=== PATIENT | male | born 1970 | race Caucasian/White ===

== ENCOUNTER 2019-04-17 16:25 | Inpatient (IN) | payer OTHER ==
[~2019-04-17] VITALS: Ht 185.4 cm; Wt 107.1 kg
[~2019-04-17 16:25] MED LIST: ALBU90OI INH; AZIT250 PO; FLUT.05NI; PRED10 PO; Prednisone20 MG PO
[2019-04-17 16:50] LABS: PCO2 Arterial > 105 mmHg (35-45); PO2 Arterial 146 mmHg (80-100); pH Blood Arterial 7.01 (7.35-7.45)
[2019-04-17 16:56] LABS: BASOPHILS ABSOLUTE AUTO 0.15 K/mm3 (0.00-0.23); BASOPHILS PERCENT AUTO 1 % (0-2); EOSINOPHILS ABSOLUTE AUTO 2.29 K/mm3 (0.00-0.68); EOSINOPHILS PERCENT AUTO 11 % (0-6); Hemoglobin 16.4 g/dL (13.5-17.5); IMMATURE GRAN ABSOLUTE AUTO 0.08 K/mm3 (0.00-0.10); IMMATURE GRAN PERCENT AUTO 0 % (0-1); LYMPHOCYTES ABSOLUTE AUTO 9.96 K/mm3 (0.84-5.20); LYMPHOCYTES PERCENT AUTO 47 % (21-46); MONOCYTES ABSOLUTE AUTO 1.14 K/mm3 (0.16-1.47); MONOCYTES PERCENT AUTO 5 % (4-13); Mean Corpuscular HGB 31.9 pg (26.0-34.0); Mean Corpuscular HGB Conc 32.2 g/dL (31.5-36.5); Mean Corpuscular Volume 99 fL (80-100); Mean Platelet Volume 10.2 fL (9.1-12.4); NEUTROPHILS ABSOLUTE AUTO 7.57 K/mm3 (1.96-9.15); NEUTROPHILS PERCENT AUTO 36 % (41-73); Platelet Count 326 K/mm3 (150-400); RDW Coefficient Variation 12.7 % (11.7-14.2); RDW Standard Deviation 46.3 fL (35.1-46.3); Red Blood Cell Count 5.14 M/mm3 (4.30-5.90); White Blood Cell Count 21.19 K/mm3 (4.00-11.30)
[2019-04-17 18:03] LABS: PCO2 Arterial > 105 mmHg (35-45); PO2 Arterial 456 mmHg (80-100); pH Blood Arterial 7.08 (7.35-7.45)
[2019-04-17 18:20] LABS: Source, Urine Catheter
[2019-04-17 18:22] LABS: Alanine Aminotransfer (ALT/SGP 33 U/L (12-78); Albumin, Blood 4.1 g/dL (3.4-5.0); Albumin/Globulin Ratio 1.1 (0.8-1.8); Alk Phos 59 U/L (50-136); Anion Gap 3 mmol/L (6-16); Aspartate Aminotrans (AST/SGOT 29 U/L (12-37); Bilirubin, Total 0.4 mg/dL (0.1-1.0); Blood Urea Nitrogen 19 mg/dL (8-24); Bun/Creatinine Ratio 19.7 (12.0-20.0); CO2, Blood 32 mmol/L (21-32); Calcium, Blood 8.2 mg/dL (8.5-10.1); Chloride, Blood 104 mmol/L (98-108); Creatinine, Blood 0.96 mg/dL (0.60-1.20); Globulin, Blood 3.7 g/dL (2.2-4.0); Glomerular Filtration Rate >60 (60-); Glucose, Blood 283 mg/dL (70-99); Magnesium, Blood 3.1 mg/dL (1.6-2.4); Potassium, Blood 5.1 mmol/L (3.5-5.5); Sodium, Blood 139 mmol/L (136-145); Total Protein, Blood 7.8 g/dL (6.4-8.2); Troponin I 0.048 ng/mL (0.000-0.040)
[2019-04-17 18:24] LABS: Bilirubin, Urine Neg (Neg); Blood, Urine 3+ (Neg); Glucose Qualitative, Urine 2+ (Neg); Ketones, Urine Neg (Neg); Leukocyte Esterase, Urine Neg (Neg); Nitrite, Urine Neg (Neg); Protein, Urine 4+ (Neg); Specific Gravity, Urine 1.025 (1.003-1.022); Urobilinogen, Urine NORM (Normal)
[2019-04-17 18:29] LABS: Appearance, Urine Hazy (Clear); Color, Urine Yellow (P-Yellow)
[2019-04-17 18:39] LABS: Squamous Epithelial Cells Many /hpf (Few)
[2019-04-17 18:41] LABS: Amorphous Mod ({null, 0-Heavy}); Bacteria Many /hpf; Mucus Light ({null, 0-Heavy})
--- NOTE | 2019-04-17 18:41 | NUR ---
PT ARRIVED TO ICU 7 AT 1710 VIA GURNEY. PT INTUBATED AND SEDATED, PROPOFOL INFUSING. RT AT THE BEDSIDE AND CONNECTED PT TO VENTILATOR AND PT WAS ONLY PULLING VOLUMES OF 200ML. DR. SANTIAGO AND CRISTY MARLEY TO THE BEDSIDE. DR. SANTIAGO PLACED ARTERIAL LINE IN R WRIST. BICARB PUSH GIVEN AND GTT STARTED. ABG AND BMP DRAWN FROM ART LINE AND SENT TO LAB. DR. SANTIAGO SPOKE WITH PT'S FAMILY AT THE BEDSIDE.
[2019-04-17 19:28] LABS: U Amphetamine Screen Not Detected; U Barbituate Screen Not Detected; U Benzodiazapine Screen Not Detected; U Buprenorphine Screen Not Detected; U Cannabinoids Screen Not Detected; U Cocaine Screen Not Detected; U Methadone Screen Not Detected; U Methamphetamine Screen Not Detected; U Opiates Screen Not Detected; U Oxycodone Screen Not Detected; U Phencyclidine Screen Not Detected; U Propoxyphene Screen Not Detected
[2019-04-17 19:31] LABS: Adenovirus Not Detected (NOT DETECT); Bordetella pertussis Not Detected (NOT DETECT); Chlamydophila pneumoniae Not Detected (NOT DETECT); Coronavirus 229E Not Detected (NOT DETECT); Coronavirus HKU1 Not Detected (NOT DETECT); Coronavirus NL63 Not Detected (NOT DETECT); Coronavirus OC43 Not Detected (NOT DETECT); Human Metapneumovirus Not Detected (NOT DETECT); Human Rhinovirus/Enterovirus Not Detected (NOT DETECT); Influenza A Not Detected (NOT DETECT); Influenza A/2009-H1 Not Detected (NOT DETECT); Influenza A/H1 Not Detected (NOT DETECT); Influenza A/H3 Not Detected (NOT DETECT); Influenza B Not Detected (NOT DETECT); Mycoplasma pneumoniae Not Detected (NOT DETECT); Parainfluenza Virus 1 Not Detected (NOT DETECT); Parainfluenza Virus 2 Not Detected (NOT DETECT); Parainfluenza Virus 3 Not Detected (NOT DETECT); Parainfluenza Virus 4 Not Detected (NOT DETECT); Respiratory Syncytial Virus Not Detected (NOT DETECT)
--- NOTE | 2019-04-17 20:00 | NUR ---
ASSUMED CARE OF PT, REPORT RCV'D FROM NICOLE DUMONT RN. PT SEDATED ON PROPOFOL@ 25 MCG/KG/MIN. NIMBEX @ 1.5 MCG/KG/MIN FOR PARALYTIC. SODIUM BICARB @ 200 ML/HR. VENT SETTINGS AC 12, PEEP 8, FIO2 100%. NICARDAPINE GTT NEEDED FOR HTN. ABG'S ORDERED Q2. RIGHT RADIAL ARTERIAL LINE. TEMP MUNIZ PATENT AND DRAINING. PT'S FAMILY AT BEDSIDE, UPDATED WITH PROGRESS. SEE ADMISSION ASSESSMENT.
[2019-04-17 20:10] LABS: PCO2 Arterial 88.2 mmHg (35-45); PO2 Arterial 498 mmHg (80-100); pH Blood Arterial 7.19 (7.35-7.45)
[2019-04-17 21:37] LABS: PCO2 Arterial 95.1 mmHg (35-45); PO2 Arterial 487 mmHg (80-100)
[2019-04-17 22:33] LABS: PCO2 Arterial 90.2 mmHg (35-45); PO2 Arterial 277 mmHg (80-100); pH Blood Arterial 7.17 (7.35-7.45)
[2019-04-17 23:43] LABS: PCO2 Arterial 83.4 mmHg (35-45); PO2 Arterial 181 mmHg (80-100); pH Blood Arterial 7.19 (7.35-7.45)
[2019-04-18 00:45] LABS: PO2 Arterial 156 mmHg (80-100)
[2019-04-18 00:46] LABS: PCO2 Arterial 81.5 mmHg (35-45)
[2019-04-18 01:55] LABS: PO2 Arterial 113 mmHg (80-100); pH Blood Arterial 7.24 (7.35-7.45)
[2019-04-18 01:56] LABS: PCO2 Arterial 72.9 mmHg (35-45)
[2019-04-18 02:59] LABS: PO2 Arterial 132 mmHg (80-100)
[2019-04-18 03:07] LABS: PCO2 Arterial 72 mmHg (35-45); pH Blood Arterial 7.25 (7.35-7.45)
[2019-04-18 03:47] LABS: PO2 Arterial 119 mmHg (80-100)
[2019-04-18 03:49] LABS: PCO2 Arterial 72.7 mmHg (35-45); pH Blood Arterial 7.24 (7.35-7.45)
[2019-04-18 04:07] LABS: BASOPHILS ABSOLUTE AUTO 0.01 K/mm3 (0.00-0.23); BASOPHILS PERCENT AUTO 0 % (0-2); EOSINOPHILS ABSOLUTE AUTO 0.01 K/mm3 (0.00-0.68); EOSINOPHILS PERCENT AUTO 0 % (0-6); Hematocrit 48.5 % (37.0-53.0); Hemoglobin 15.3 g/dL (13.5-17.5); IMMATURE GRAN ABSOLUTE AUTO 0.07 K/mm3 (0.00-0.10); IMMATURE GRAN PERCENT AUTO 1 % (0-1); LYMPHOCYTES ABSOLUTE AUTO 0.48 K/mm3 (0.84-5.20); LYMPHOCYTES PERCENT AUTO 3 % (21-46); MONOCYTES PERCENT AUTO 1 % (4-13); Mean Corpuscular HGB 31.8 pg (26.0-34.0); Mean Corpuscular HGB Conc 31.5 g/dL (31.5-36.5); Mean Corpuscular Volume 101 fL (80-100); NEUTROPHILS ABSOLUTE AUTO 14.75 K/mm3 (1.96-9.15); NEUTROPHILS PERCENT AUTO 95 % (41-73); Platelet Count 264 K/mm3 (150-400); RDW Coefficient Variation 12.6 % (11.7-14.2); RDW Standard Deviation 46.8 fL (35.1-46.3); Red Blood Cell Count 4.81 M/mm3 (4.30-5.90); White Blood Cell Count 15.52 K/mm3 (4.00-11.30)
[2019-04-18 04:35] LABS: Anion Gap 7 mmol/L (6-16); Blood Urea Nitrogen 18 mg/dL (8-24); Bun/Creatinine Ratio 19.7 (12.0-20.0); CO2, Blood 31 mmol/L (21-32); Calcium, Blood 8.1 mg/dL (8.5-10.1); Chloride, Blood 101 mmol/L (98-108); Creatinine, Blood 0.92 mg/dL (0.60-1.20); Glomerular Filtration Rate >60 (60-); Glucose, Blood 284 mg/dL (70-99); Potassium, Blood 4.4 mmol/L (3.5-5.5); Sodium, Blood 139 mmol/L (136-145)
[2019-04-18 05:20] LABS: PCO2 Arterial 82.6 mmHg (35-45); PO2 Arterial 97.1 mmHg (80-100); pH Blood Arterial 7.22 (7.35-7.45)
--- NOTE | 2019-04-18 06:36 | NUR ---
SHIFT SUMMARY PT STABLE ALL NIGHT WITH IMPROVING ABG'S. VENT SETTINGS PC RR 15, FIO2 50%, PEEP 8.0. NIMBEX @ 2 MCG/KG/MIN, PROPOFOL 40 MCG/KG/MIN, SODIUM BICARB 200 ML/HR. 1300 ML URINARY OUTPUT. PT REMAINS TACHYCARDIC. BP REMAINED WITHIN NORMAL RANGE, NO NEED TO START THE NICARDAPINE GTT. OGT TO LIS, MINIMAL OUTPUT. PT AFEBRILE THOUGH OCCASIONALLY DIAPHORETIC. LUNGS WITH EXPIRATORY WHEEZES HEARD, NO CHANGE FROM BEGINNING OF SHIFT. ART LINE PATENT. PLEASE SEE ALL PREVIOUS NOTES FROM THIS SHIFT AND ASSESSMENTS. WILL REPORT TO DAYSHIFT NURSE.
--- NOTE | 2019-04-18 07:50 | NUR ---
Recieved report from Craig HERRON. Patient is sedated and intubated. He has 8.0 ET and 24 cm at teeth. He is vent settings are AC 15, PC 25, FiO2 25% and PEEP 8.0 and sats 89-92%. He is afebrille at 98.6, systolics 120-130's amd ST 120's. He is being paralyzed on nimbex and reduced to 1.5 mcg/kg/min from 2.0 and reduced Propofol from 40 mcg/kg/min to 35. He is 3 on a train of four currently. He has OG to LIS with no output. He has Temp ray 16Fr. draining to gravity. he has bilaterl 18ga wrist IV's bothe dressings intact and WNL'sThe left IV infusing Bi-carb 200ml/hr and the right Propofol 35mcg/kg/min. He has FS IV in LFA 18ga and is flushed and SL'd. He has art line to right wrist. He has bilateral LE SCD's in place.
--- NOTE | 2019-04-18 09:02 | NUR ---
NOTIFIED RT OF NURSE NOTIFY FOR ADVANCING ET 2CM AND WAS 25CM AT LIPS AND NOW 27 AT LIPS.NO OTHER CURRENT CHANGES
--- NOTE | 2019-04-18 10:05 | NUR ---
Dr Abdul was in room and changed vent settings to AC 18, PC 22 FiO2 50%, Peep 8.0 sats low 90%. Dropped Bi carb to 100ml/hr and weaning off Nimbex if possible. Changed out OG as it was coiled in throat and mouth. Talking about TF's.
--- NOTE | 2019-04-18 11:30 | NUR ---
Reduced Nimbex to 1 mcg/kg/min and his resp effort increased and Nimbex back to 1.5 mcg/kg/min and increased Propofol to 40 mcg/kg/min. Increased FiO2 to 60% and no other vent senting changes. All family has gone and patient comfortable. He is slightly febrile at 99.0. Sats 88-93 %.
--- NOTE | 2019-04-18 13:30 | NUR ---
Remove restraints at 1300 as increased Nimbex back up. No current changes in Gtt or vent settings. Started TF Vital High Protien at 25ml/hr. Sats remains 90-93%.
--- NOTE | 2019-04-18 15:22 | NUR ---
No new current changes, nimbex, bicarb, Propofol, or vent. HE 120-130's, systolic 120-130's and MAP > 65.
--- NOTE | 2019-04-18 17:35 | NUR ---
No changes with patient, Nimbex at 1.5 mcg/kg/min, D5 BiCarb 100ml/hr, Propofol 40 mcg/kg/min. Patient tends to sat low on left side in the high 80's nad low 90's on right side. Patients family have many questions. TF, Vital High Protien 25ml/hr. Art line and safe set to right wrist.
--- NOTE | 2019-04-18 19:30 | NUR ---
ASSUMED CARE PT PARALYZED VIA NIMBEX FOR VENTILATOR SYNCHRONY AT 1MCG/KG/MIN WITH TRAIN OF FOUR AT 4/4, INCREASED TO 1.2. PROPOFOL AT 40MCG/KG/MIN. VENT SETTINGS OF AC18, PC 22, FIO2 60% AND PEEP OF 8. O2 SATS IN THE LOW 90'S AND WITH ANY MOVEMENT SATS DROP TO HIGH 80'S WITH EXTENDED RECOVERY TIME. BP ADEQUATE/OCCASIONALLY HYPERTENSIVE VIA RT RADIAL ART LINE, ECG SHOWS ST IN THE 120'S. BICARB GTT AT 100ML/HR. TF INITIATED TODAY AT GOAL OF 20ML/HR WITH NO RESIDUAL. PLAN ON GIVING CT TYLENOL FOR TEMP, PT IS HOT TO TOUCH AND DIAPHORETIC. MULTIPLE FAMILY MEMBERS IN ROOM, ANSWERED QUESTIONS REGARDING ASSESSMENT CONCERNS AND PLAN FOR SHIFT.
[2019-04-19 03:17] LABS: BASOPHILS ABSOLUTE AUTO 0.02 K/mm3 (0.00-0.23); BASOPHILS PERCENT AUTO 0 % (0-2); EOSINOPHILS PERCENT AUTO 0 % (0-6); Hematocrit 44.7 % (37.0-53.0); Hemoglobin 13.6 g/dL (13.5-17.5); IMMATURE GRAN ABSOLUTE AUTO 0.11 K/mm3 (0.00-0.10); IMMATURE GRAN PERCENT AUTO 1 % (0-1); LYMPHOCYTES ABSOLUTE AUTO 0.85 K/mm3 (0.84-5.20); LYMPHOCYTES PERCENT AUTO 5 % (21-46); MONOCYTES ABSOLUTE AUTO 0.56 K/mm3 (0.16-1.47); MONOCYTES PERCENT AUTO 3 % (4-13); Mean Corpuscular HGB 31.8 pg (26.0-34.0); Mean Corpuscular HGB Conc 30.4 g/dL (31.5-36.5); Mean Platelet Volume 9.8 fL (9.1-12.4); NEUTROPHILS ABSOLUTE AUTO 16.41 K/mm3 (1.96-9.15); NEUTROPHILS PERCENT AUTO 92 % (41-73); Platelet Count 225 K/mm3 (150-400); RDW Coefficient Variation 12.8 % (11.7-14.2); RDW Standard Deviation 49.1 fL (35.1-46.3); Red Blood Cell Count 4.28 M/mm3 (4.30-5.90); White Blood Cell Count 17.95 K/mm3 (4.00-11.30)
[2019-04-19 03:18] LABS: Mean Corpuscular Volume 104 fL (80-100)
[2019-04-19 03:39] LABS: Anion Gap 0 mmol/L (6-16); Blood Urea Nitrogen 13 mg/dL (8-24); CO2, Blood 41 mmol/L (21-32); Calcium, Blood 8.1 mg/dL (8.5-10.1); Chloride, Blood 97 mmol/L (98-108); Creatinine, Blood 0.72 mg/dL (0.60-1.20); Glomerular Filtration Rate >60 (60-); Glucose, Blood 182 mg/dL (70-99); Magnesium, Blood 2.3 mg/dL (1.6-2.4); Potassium, Blood 4.5 mmol/L (3.5-5.5); Sodium, Blood 138 mmol/L (136-145)
[2019-04-19 03:55] LABS: Troponin I 0.626 ng/mL (0.000-0.040)
[2019-04-19 04:48] LABS: PCO2 Arterial 97.5 mmHg (35-45); pH Blood Arterial 7.25 (7.35-7.45)
[2019-04-19 04:49] LABS: PO2 Arterial 73.9 mmHg (80-100)
--- NOTE | 2019-04-19 05:11 | NUR ---
CALL TO DR NGUYEN UPDATED ON CRITICAL ABG (pH, CO2) NO NEW ORDERS.
--- NOTE | 2019-04-19 06:18 | NUR ---
SHIFT SUMMARY SEE PREVIOUS NOTES FOR SHIFT. PT REMAINS INTUBATED, NO CHANGE TO PREVIOUSLY NOTED VENT SETTINGS. SEDATION VIA PROPOFOL AT 40MCG/KG/MIN AND NIMBEX AT 1.5MCG/KG/MIN W/ CURRENT TOF OF 2/4, BICARB GTT AT 100ML/HR. TF AT GOAL OF 20ML/HR-NO RESIDUALS FOR SHIFT. PT MEDICATED X 4 W/ FANTANYL, HR DECREASED TO 110'S AND BP IMPROVED POST ADMINISTRATION. BP HYPERTENSIVE VIA RT RADIAL ART LINE AT TIMES BUT RESOLVES WITH FENTANYL, ECG SHOWS ST, O2 SATS 90-94% DEPENDENT ON REPOSITIONING.
--- NOTE | 2019-04-19 07:40 | NUR ---
Recieved report from Roseanna HERRON. Patient remains intubated, sedated and paralyzed. #3 for train of four. He has 8.0 ET and is 27cm at teeth. His vent settings are AC18 PC 22 FiO2 60% and PEEP 8.0 and sats low 90%'s. He continues to be diaphoretic and temp 98.9. He has bilateral 18ga IV in wrist/hands and left is infusing propofol 40 mcg/kg/min and D5 sodium BiCarbat 100ml/hr and the right has nimbex 1.5 mcg/kg/min. He has arterial line in right wrist for monitorinbg BP and has safe set attached for blood draws. He has temp ray in place draining to gravity tea/propofol colored urine. He has SCd's bilateral to LE's.
--- NOTE | 2019-04-19 07:55 | NUR ---
was called into room by Alina EPSTEIN and she stated his sats were dropping and volumes decreased to 180's. paged Dr Abdul and Alina discussed her findings.
--- NOTE | 2019-04-19 09:30 | NUR ---
ART LINE REMOVED AND USE LARGE CUFF ON LEFT UPPER ARM. NO CHANGES TO NIMBEX AND PROPOFOL AND D5 SODIUM BICARB[address] NGUYEN IN ROOM AND MAKING ADJUSTMENTS TO VENT AND NOW IS AC 22, PC 22, FIO2 60% AND PEEP 8.0 AND SATS 88-92%. FAMILY AT BEDSIDE. PATIENT SLIGHTLY FEBRILE AT 99.0, HR 120, SYSTOLIC 140-150'S.
--- NOTE | 2019-04-19 11:40 | NUR ---
No significant changes with patient, placed fan to help cool patient. No current changes to gtt or vent setting, volumes 350-400's. Family remains at bedside for support.
--- NOTE | 2019-04-19 13:01 | NUR ---
ASSUMED CARE OF PT FROM GOPAL DUMONT. PROPOFOL, NIMBEX AND BICARB GTTS INFUSING. MULTIPLE FAMILY MEMBERS AT THE BEDSIDE. PT SPO2 94% WITH AC 22, PS 22, PEEP 8 AND FIO2 50%.
--- NOTE | 2019-04-19 17:22 | NUR ---
SHIFT SUMMARY: PT HAS DONE WELL THIS SHIFT WITH INCREASING VOLUMES ON THE VENT AND MAINTAININ SPO2 AROUND 95% THIS AFTERNOOON ON 50% FIO2. PT IS STILL ON THE NIMBEX BUT IT IS BEING TITRATED DOWN CURRENTLY SO WRIST RESTRAINTS REAPPLIED TO PREVENT ACCIDENTAL EXTUBATION. PT'S LUNGS ARE TIGHT WITH WHEEZES ON THE R SIDE. HE HAS HAD SMALL AMT OF THICK WHITE SPUTUM. ST IN THE 110-1TEENS, SBP IN THE 130-150S. HE HAS GENERALIZED EDEMA. TOLERATING TUBE FEED. CL URINE OUT FROM MUNIZ. PT HAS HAD MULTIPLE FAMILY MEMBERS AT THE BEDSIDE TODAY. NIMBEX IS BEING TITRATED OFF LOTS OF EDUCATION PROVIDED ON WHAT TO EXPECT. FAMILY HAS BEEN VERY ANXIOUS BUT DOES WELL WITH LOTS OF EXPLANATION OF PLAN OF CARE. CONTINUING TO MONITOR.
--- NOTE | 2019-04-19 19:30 | NUR ---
ASSUMED CARE PT REMAINS INTUBATED, OFF NIMBEX, REMAINS ON PROPOFOL AT 60MCG/KG/MIN. PT RESPONDS TO PAIN BUT DOES NOT FOLLOW COMMANDS WITH PROPOFOL AT THIS RATE. VENT SETTINGS AT AC22/PC18/NLD805%/PEEP 8. GOAL IS TO MAINTAIN VOLUMES 400-500'S. BICARB GTT REMAINS AT 100ML/HR AND TF REMAINS AT GOAL OF 20 WITH NO RESIDUALS. RT RADIAL ART LINE DC'D TODAY-SITE IS SOFT, NONTENDER WITHOUT ANY EVIDENCE OF HEMATOMA WITH GOOD SPO2 WAVEFORM. VSS, ECG SHOWS ST IN THE 120'S O2 SATS ARE IN THE LOW 90'S.
[2019-04-20 03:59] LABS: BASOPHILS ABSOLUTE AUTO 0.01 K/mm3 (0.00-0.23); BASOPHILS PERCENT AUTO 0 % (0-2); EOSINOPHILS PERCENT AUTO 0 % (0-6); Hematocrit 41.8 % (37.0-53.0); Hemoglobin 12.9 g/dL (13.5-17.5); IMMATURE GRAN ABSOLUTE AUTO 0.07 K/mm3 (0.00-0.10); IMMATURE GRAN PERCENT AUTO 0 % (0-1); LYMPHOCYTES PERCENT AUTO 5 % (21-46); MONOCYTES ABSOLUTE AUTO 0.51 K/mm3 (0.16-1.47); MONOCYTES PERCENT AUTO 3 % (4-13); Mean Corpuscular HGB 31.9 pg (26.0-34.0); Mean Corpuscular HGB Conc 30.9 g/dL (31.5-36.5); Mean Corpuscular Volume 104 fL (80-100); Mean Platelet Volume 9.9 fL (9.1-12.4); NEUTROPHILS ABSOLUTE AUTO 14.48 K/mm3 (1.96-9.15); NEUTROPHILS PERCENT AUTO 91 % (41-73); Platelet Count 200 K/mm3 (150-400); RDW Coefficient Variation 12.5 % (11.7-14.2); RDW Standard Deviation 47.3 fL (35.1-46.3); Red Blood Cell Count 4.04 M/mm3 (4.30-5.90); White Blood Cell Count 15.87 K/mm3 (4.00-11.30)
[2019-04-20 04:16] LABS: Anion Gap 2 mmol/L (6-16); Blood Urea Nitrogen 18 mg/dL (8-24); Bun/Creatinine Ratio 26.1 (12.0-20.0); CO2, Blood 42 mmol/L (21-32); Calcium, Blood 8.7 mg/dL (8.5-10.1); Chloride, Blood 97 mmol/L (98-108); Creatinine, Blood 0.69 mg/dL (0.60-1.20); Glomerular Filtration Rate >60 (60-); Glucose, Blood 172 mg/dL (70-99); Magnesium, Blood 2.3 mg/dL (1.6-2.4); Phosphorus, Blood 1.5 mg/dL (2.5-4.9); Potassium, Blood 3.8 mmol/L (3.5-5.5); Sodium, Blood 141 mmol/L (136-145)
[2019-04-20 05:00] LABS: PCO2 Arterial 69.9 mmHg (35-45); PO2 Arterial 69.4 mmHg (80-100); pH Blood Arterial 7.42 (7.35-7.45)
--- NOTE | 2019-04-20 06:36 | NUR ---
SHIFT SUMMARY PT REMAINS INTUBATED ON AC22 W/ PC 18, PEEP OF 8 AND FIO2 50%. WITH ANY DOWNWARD TITRATION OF SEDATION, VT'S DROP TO 200'S, O2 SATS IN THE LOW 90'S AND HR >125 AND PROPOFOL HAS REMAINED BETWEEN 50-60,CG/KG/MIN ALONG WITH SEDATION ADJUNCTS OF FENTANYL AND ATIVAN WHEN MORE AGITATED. BICARB AT 100ML/HR. TF REMAINS AT GOAL OF 20ML/HR WITH NO RESIDUALS. AM LABS SHOWS LOW PHOS AND KPHOS RIDER INFUSING NOW PER ELECTROLYTE PROTOCOL.
--- NOTE | 2019-04-20 07:15 | NUR ---
ASSUMED CARE OF PATIENT; SEE ASSESSMENT CHARTING FOR DETAILS. PATIENT REMAINS SEDATED AND INTUBATED; PROPOFOL DRIP AT 60MCG/KG/MIN. RIKERS' SCALE 3. VENT. SETTINGS: A/C 22, PC 18, PEEP 8 AND FIO2 50%. BIOX LOW TO MID 90'S. NAHCO3 DRIP INFUSING AT 100ML/HR. TUBE FEEDING, OF VITAL HIGH PROTEIN, AT GOAL RATE OF 20 ML/HR WITH 30ML H20 EVERY 4 HOURS. MUNIZ DRAINING MOD. AMOUNTS OF GREEN/YELLOW URINE (PROPOFOL). BILAT. SOFT WRIST RESTRAINTS IN PLACE; NO S/SX'S OF SKIN BREAKDOWN; ROM DONE Q [address] WITHOUT NOTED ECTOPY; BP LABILE BUT ADEQUATE.
--- NOTE | 2019-04-20 09:30 | NUR ---
DR. WHITE HERE; CHANGED FIO2 TO 45% AND A/C RATE FROM 22 TO 20. RN INFORMED R.T. RE: CHANGES.
--- NOTE | 2019-04-20 09:57 | NUR ---
PROPOFOL DRIP DOWN TO 50MCG/KG/MIN; WILL INITITATE PRECEDEX DRIP AT 0.4 MCG/KG/HR. FAMILY AT BEDSIDE; LOTS OF QUESTIONS AND CONCERNS. RN EXPLAINING MED. ADJUSTMENTS, ETC. DR. WHITE INFORMED THEM THAT PATIENT IMPROVED AND EXPLAINED POC.
--- NOTE | 2019-04-20 10:15 | NUR ---
ETT APPEARS TO BE SLIPPING DOWN (PATIENTS' SKIN DIAPHORETIC); CUFF LEAK NOTED; RN CONTACTED STEFAN RAHMAN, RN RE:ABOVE.
--- NOTE | 2019-04-20 11:00 | NUR ---
R.T.'S RETAPED ETT; NO FURTHER PROBLEMS WITH AIR LEAK ETC.
--- NOTE | 2019-04-20 13:06 | NUR ---
PROPOFOL DRIP DOWN TO 30MCG/KG/MIN. FROM 40MCG/KG/MIN.
--- NOTE | 2019-04-20 16:22 | NUR ---
Met with Rubin's mom at bedside. She admits concern and responded well to theraputic listening, affirmation of excellent care, and gentle mortgage counselor. Non-faith, but she was appreciaitve of emotional support. I will remain available.
--- NOTE | 2019-04-20 18:30 | NUR ---
SUMMARY: VENT. SETTINGS PREVIOUSLY NOTED. PROPOFOL DRIP AT 50MCG/KG/MIN AND PRECEDEX DRIP AT 0.7MCG/KG/HR. PATIENT STILL MOVING HEAD BACK AND FORTH AND PULLING ON RESTRAINTS, AT TIMES; HIGH PRESSURES VENT. ETC. FENTANYL 50MCG GIVEN IVT WHICH BRINGS DOWN RR RATE TO TEENS TO LOW 20'S; SBP DOWN TO 120'S AND HR TO 100/MIN. INFORMED FAMILY THAT SBT TO BE DONE IN AM AND POSSIBLY MAY BE EXTUBATED TOMORROW IF HE BECOMES MORE ALERT/COOPERATIVE WHEN SEDATION REDUCED; INFORMED FIO2 AT 45% AND PEEP 8 WHICH WILL NEED TO BE REDUCED BEFORE EXTUBATION, ALSO. FAMILY REMAINS SUPPORTIVE AND ATTENTIVE TO PATIENT AND ALL HIS 'MACHINES'; FREQUENT QUESTIONS/CONCERNS. DIURESED 2700ML OF URINE OVER PAST 12 HOURS. WILL REPORT TO ONCOMING RN.
--- NOTE | 2019-04-20 19:30 | NUR ---
ASSUMED CARE PT REMAINS INTUBATED, CURRENT SETTINGS OF AC 20 W/ PC 18, FIO2 45% AND PEEP 8. PT MORE AGITATED THIS SHIFT AND SEDATION IS VIA BOTH PROPOFOL AT 50MCG/KG/MIN AND PRECEDEX AT 0.7MCG/KG/HR. PT OPENS EYES SPONTANEOUSLY BUT DOES NOT FOLLOW COMMANDS, ONLY MOVES HEAD BACH AND FORTH. WITH AGITATION, VT'S DROP TO 200'S AND RR 28-34 BUT WHEN SEDATED VT'S IN THE 500-600'S. TF ADVANCED TO NEW GOAL OF 35ML/HR-10ML RESIDUAL. BICARB DC'D AND NS TKO. PT REAMAINS WARM TO TOUCH AND SKIN IS RED WITH ANY AGITATION. WILL DISCUSS SBT IN AM WITH RT. VSS, ECG SHOWS ST 100-120'S AND O2 SATS LOW 90'S.
--- NOTE | 2019-04-20 22:46 | NUR ---
CALL FROM DR CHRISTOPHER REEVES REQUESTED SBT IN AM WITH GOAL OF TITRATING PROPOFOL DOWN TO 40 AND FIO2 TO 40%. RT UPDATED ON PLAN.
--- NOTE | 2019-04-21 03:18 | NUR ---
SBT SBT UNDERWAY. PROPOFOL AT 30MCG/KG/MIN AND PRECEDEX AT 0.7. PT OPENS EYES SPONTANEOUSLY BUT DOES NOT FOLLOW COMMANDS. VT'S 300-500, RR 30-35 AND O2 SATS 92%.
[2019-04-21 03:43] LABS: BASOPHILS PERCENT AUTO 0 % (0-2); EOSINOPHILS PERCENT AUTO 0 % (0-6); Hematocrit 41.7 % (37.0-53.0); Hemoglobin 13.2 g/dL (13.5-17.5); IMMATURE GRAN ABSOLUTE AUTO 0.03 K/mm3 (0.00-0.10); IMMATURE GRAN PERCENT AUTO 0 % (0-1); LYMPHOCYTES ABSOLUTE AUTO 0.94 K/mm3 (0.84-5.20); LYMPHOCYTES PERCENT AUTO 9 % (21-46); MONOCYTES ABSOLUTE AUTO 0.41 K/mm3 (0.16-1.47); MONOCYTES PERCENT AUTO 4 % (4-13); Mean Corpuscular HGB 31.6 pg (26.0-34.0); Mean Corpuscular HGB Conc 31.7 g/dL (31.5-36.5); NEUTROPHILS ABSOLUTE AUTO 9.35 K/mm3 (1.96-9.15); NEUTROPHILS PERCENT AUTO 87 % (41-73); Platelet Count 192 K/mm3 (150-400); RDW Coefficient Variation 12.5 % (11.7-14.2); RDW Standard Deviation 45.9 fL (35.1-46.3); Red Blood Cell Count 4.18 M/mm3 (4.30-5.90); White Blood Cell Count 10.73 K/mm3 (4.00-11.30)
[2019-04-21 03:44] LABS: Mean Corpuscular Volume 100 fL (80-100)
[2019-04-21 03:56] LABS: PCO2 Arterial 54.6 mmHg (35-45); PO2 Arterial 60 mmHg (80-100); pH Blood Arterial 7.48 (7.35-7.45)
[2019-04-21 03:57] LABS: Anion Gap 4 mmol/L (6-16); Blood Urea Nitrogen 27 mg/dL (8-24); Bun/Creatinine Ratio 35.8 (12.0-20.0); CO2, Blood 40 mmol/L (21-32); Calcium, Blood 8.9 mg/dL (8.5-10.1); Chloride, Blood 100 mmol/L (98-108); Creatinine, Blood 0.76 mg/dL (0.60-1.20); Glomerular Filtration Rate >60 (60-); Glucose, Blood 178 mg/dL (70-99); Magnesium, Blood 2.5 mg/dL (1.6-2.4); Phosphorus, Blood 3.5 mg/dL (2.5-4.9); Potassium, Blood 3.8 mmol/L (3.5-5.5); Sodium, Blood 144 mmol/L (136-145)
--- NOTE | 2019-04-21 04:42 | NUR ---
SBT, WEAN WAS DONE ON PS 7 A PEEP OF 8 FOR THE FIRST 15 MINS THEN CHANGED PEEP TO 5. PT BROUGHT IN GOOD VT'S 400-750 T/O. MIN VOL WERE HIGH 14-16, PT TRASHED ABOUT/DID NOT FOLLOW COMMANDS. RR WERE IN THE 30'S T/O WEAN.
--- NOTE | 2019-04-21 06:01 | NUR ---
SHIFT SUMMARY SEE PREVIOUS NOTES FOR SHIFT. PT REMAINS ON PC18, FIO2 40% AND PEEP 8. SEDATION VIA PROPOFOL AT 40MCG/KG/MIN AND PRECEDEX AT 0.5MCG/KG/HR. PT HAS BEEN MEDICATED WITH FENTANYL IN AN EFFORT TO TITRATE SEDATION DOWNWARD. TF REMAINS AT GOAL OF 35ML/HR WITH RESIDUALS <10ML. VSS, ECG SHOWS SR/ST, O2 SATS LOW 90'S. UOP 1600ML AND IS GREEN IN COLOR.
--- NOTE | 2019-04-21 07:16 | NUR ---
BEGINNING OF SHIFT Assumed care at 0700 with Natali HERRON. Bedside report received from Latonia HERRON.
--- NOTE | 2019-04-21 08:05 | NUR ---
FAMILY AT BEDSIDE Pt's mother at bedside. Updated on pt's care. Oral care performed. Pt agitated, opening eyes spontaneously and moving head away from suction. Agitation resolved after oral care completed.
--- NOTE | 2019-04-21 10:50 | NUR ---
UPDATE Pt's mother inquired about reason pt was still on propofol and verbalized frustration. This RN educated pt's mother that pt was highly agitated during oral care and sedation is necessary to decrease agitation and increase comfort. Pt's mother verbalized understanding but also continued to verbalize frustration. Sedation gradually decreased until propofol was off and precedex was 0.3 mcg/kg/hr. Pt opened eyes spontaneously and able nod head and visual basic developer with hands. Dr Gomez in room to assess pt. Pt changed from pressure control to spontaneous mode on ventilator. PEEP 5.0, FiO2 40%. Decision made by Dr Gomez to not extubate today due to tachynpea and inconsistent tidal volumes. Additionally, pt was not able to follow commands such as wiggling toes, lifting legs, or holding up two fingers. Propofol restarted at 30 mcg/kg/min. Tidal volumes between 350 and 450.
--- NOTE | 2019-04-21 12:37 | NUR ---
UPDATE Pt remains on spontaneous ventilation mode. Propofol 40 mcg/kg/min. Precedex 0.5 mcg/kg/hr. Fentanyl given for tachypnea and agitation. Pt often bites on tube and thrashes head left and right. Family educated about decreasing stimulation as they are often at pt's bedside repositioning legs, moving blankets, placing fan on pt, etc. Family verbalizes understanding. Pt's mother educated each time sedation is increased due to agitation. She verbalizes understanding.
--- NOTE | 2019-04-21 15:20 | NUR ---
INCREASED WHEEZING AND TIGHTNESS TO BASES AFTER PT AWROUSED AND BECAME VERY AGITATED; THRASHING HEAD FROM SIDE TO SIDE, SITTING UP IN BED, GAGGING ON ETT. PT MEDICATED WITH FENT 50MCG. RT AT BEDSIDE AND INCREASED FIO2 UP TO 50% SATS RANGING FROM 87-88% ON 45%. MODERATE AMT OF THICK YELLOW SPUTUM SX'S FROM ETT.
--- NOTE | 2019-04-21 17:37 | NUR ---
SUMMARY Pt tolerated spontaneous mode t/o day, with TV 350-450. FiO2 required increasing to 50%. RR between 22-28 while comfortably sedated. RR increases to 32-36 with agitation. Agitation resolves with fentanyl and decrease of stimuli. Pt remains on propofol 40 mcg/kg/min and precedex 0.5 mcg/kg/hr. Pt placed back on PC 18, PEEP 5, FiO2 50% per orders from Dr Gomez; for rest. OG tube remains with 35 mL/hr feeds of Vital High Protein and 30 mL water flush Q4H. Residuals less than 10 mL. 1675 mL of green urine output from ray catheter.
--- NOTE | 2019-04-21 18:35 | NUR ---
UPDATE Temp 99.7 per temp ray. Pt diaphoretic. SCDs removed. Fan placed on patient. No shivering noted.
--- NOTE | 2019-04-21 19:24 | NUR ---
ASSUMED CARE PT REMAINS INTUBATED, CURRENT VENT SETTINGS AT PC 18, FIO2 50% AND PEEP OF 5. SEDATION VIA PROPOFOL AT 40MCG/KG/MIN AND PRECEDEX AT 0.5MCG/KG/HR. FAMILY IN ROOM, DISCUSSED PLAN FOR SEDATION, BATH AND SBT IN AM. TF AT GOAL OF 35ML/HR WITH RESIDUAL <10ML. VSS, ECG SHOWS SR IN THE 80'S AND O2 SATS 94%. FC IN PLACE DRAINING GREEN URINE. SCD'S CURRENTLY OFF D/T INCREASING TEMP WHICH HAS HAPPENED IN THE EVENING FOR THE LAST 4 SHIFTS BUT REMAINS <100.4.
--- NOTE | 2019-04-21 23:55 | NUR ---
UPDATE RT IN ROOM, ADJUSTED PC TO 12, NO CHANGE TO FIO2 BUT CHANGED I:E RATIO. VT'S 500-600 AND O2 SATS 92-94%. WILL UPDATE DR WHITE WHEN ABLE.
--- NOTE | 2019-04-22 03:36 | NUR ---
SEDATION VACATION PER RT, PLAN TO CHANGE PT OVER TO PS TODAY. SEDATION OFF FOR SEDATION VACATION. AFTER FIVE TO TEN MINUTES, PT OPENS EYES, FOLLOWS COMMANDS AND CAN NOD/SHAKE HEAD TO YES/NO QUESTIONS. PRECEDEX REMAINS ON AT 0.5MCG/KG/HR, DISCUSSED RESTARTING SEDATION WITH FAMILY FRIEND THELMA IF PT SHOWED ANY SIGNS OF FATIGUE OR ANXIETY.
[2019-04-22 03:38] LABS: Hematocrit 41.3 % (37.0-53.0); Hemoglobin 12.8 g/dL (13.5-17.5); Mean Corpuscular HGB 31.2 pg (26.0-34.0); Mean Corpuscular Volume 101 fL (80-100); Mean Platelet Volume 9.8 fL (9.1-12.4); Platelet Count 188 K/mm3 (150-400); RDW Coefficient Variation 12.6 % (11.7-14.2); RDW Standard Deviation 47.1 fL (35.1-46.3); White Blood Cell Count 8.22 K/mm3 (4.00-11.30)
[2019-04-22 03:41] LABS: Base Excess Venous 10.6 mmol/L; Bicarbonate Venous 32.7 mmol/L (24.0-30.0); PO2 Venous 70.2 mmHg (38-42); pH Blood Venous 7.46 (7.34-7.37)
[2019-04-22 03:54] LABS: Anion Gap 6 mmol/L (6-16); Blood Urea Nitrogen 29 mg/dL (8-24); Bun/Creatinine Ratio 30.9 (12.0-20.0); CO2, Blood 34 mmol/L (21-32); Calcium, Blood 8.5 mg/dL (8.5-10.1); Chloride, Blood 104 mmol/L (98-108); Creatinine, Blood 0.94 mg/dL (0.60-1.20); Glomerular Filtration Rate >60 (60-); Glucose, Blood 180 mg/dL (70-99); Potassium, Blood 3.9 mmol/L (3.5-5.5); Sodium, Blood 144 mmol/L (136-145)
[2019-04-22 04:01] LABS: BASOPHILS PERCENT MAN 0 % (0-2); EOSINOPHILS PERCENT MAN 0 % (0-6); LYMPHOCYTES ABSOLUTE MAN 0.82 K/mm3 (0.84-5.20); LYMPHOCYTES PERCENT MAN 10 % (21-46); METAMYELOCYTE ABSOLUTE MAN 0.08 K/mm3 (0.00-0.00); METAMYELOCYTE PERCENT MAN 1 % (0-0); MONOCYTES ABSOLUTE MAN 0.41 K/mm3 (0.16-1.47); MONOCYTES PERCENT MAN 5 % (4-13); SEG NEUTROPHILS PERCENT MAN 84 % (41-73); TOTAL CELLS COUNTED 100
--- NOTE | 2019-04-22 04:07 | NUR ---
SEDATION RESUMED PT RR INCREASED AND REPORTED VIA NODDING INCREASED WORK OF BREATHING. SEDATION RESUMED-SEE ICU FLOW SHEET FOR DETAILS.
--- NOTE | 2019-04-22 06:41 | NUR ---
SHIFT SUMMARY SEE PREVIOUS NOTES FOR SHIFT. PT REMAINS INTBUATED, CURRENT SETTINGS AT PC 12, PEEP OF 5 FIO2 50%. SEDATION RESUMED AFTER SEDATION VACATION D/T REPORTED INCREASED WORK OF BREATHING VIA PROPOFOL AT 40MCG/KG/MIN AND PRECEDEX AT 0.5MCG/KG/HR. UPDATED PT'S MOTHER SHASHA ABOUT SEDATION VACATION RESULTS AND THAT DR JACOB IS THE HYDROELECTRIC PLANT STRUCTURAL ENGINEER ON TODAY. TF REMAINS AT GOAL WITH RESIDUAL <10ML, MUNIZ IN PLACE WITH 1900 GREEN URINE OUTPUT. VSS, ECG SHOWS SR, O2 SATS AT 94%. PT'S FRIEND THELMA SPENT THE NIGHT IN ROOM.
--- NOTE | 2019-04-22 08:36 | NUR ---
PT SEDATED ON PROPOFOL AT 40MCG AND PRECEDEX AT 0.5MCG FOR MECH VENT. PRECEDEX DECREASED TO 0.2MCG IN PREPARATION OF WEAN AND POSSIBLE EXTUBATION. LUNGS DIMINISHED TO BASES, EXP WHEEZE TO LEFT UPPER LOBE. PT MOVES AND GRIMACES WITH NOXIOUS STIMULI. FAMILY AT BEDSIDE.
--- NOTE | 2019-04-22 09:48 | NUR ---
PROPOFOL PLACED ON STANDBY. DR JACOB IN UNIT AND GIVEN UPDATE.
--- NOTE | 2019-04-22 10:18 | NUR ---
PT PLACED ON SPONT 04/15 WITH FIO2 AT 40% FOR WEANING TRIAL. PT VERY AWAKE AND FOLLOWING DIRECTIONS; PT INTERACTING W FAMILY, NODDING APPROPRIATELY. PROP AND PRECEDEX OFF. TF OFF.
--- NOTE | 2019-04-22 11:18 | NUR ---
PT EXTUBATED AT 1100, PT TOLERATED EXTUBATION WELL. PLACED ON 4L N/C, TITRATED UP TO 5L. PROPOFOL AND PRECEDEX REMAIN OFF. NS AT TKO TO POWERGLIDE. OG TUBE DC'D WITH ETT. PT RECEIVING UDN NOW; FAMILY AT BEDSIDE
[2019-04-22 11:41] LABS: Base Excess Venous 8.5 mmol/L; Bicarbonate Venous 30.8 mmol/L (24.0-30.0); PCO2 Venous 44.7 mmHg (38-42); PO2 Venous 45.2 mmHg (38-42); pH Blood Venous 7.47 (7.34-7.37)
--- NOTE | 2019-04-22 11:50 | NUR ---
PT PLACED ON HIGH ELIEZER AT 9L, SATS 92%.
--- NOTE | 2019-04-22 13:24 | NUR ---
SATS REMAIN 92% ON 9L HIGHFLO, PT RESP EVEN AND UNLABORED. LASIX 20MG IVP GIVEN PER DR JACOB. PT TOLERATING ICE CHIPS
--- NOTE | 2019-04-22 16:37 | NUR ---
PT DANGLED AT BEDSIDE, ABLE TO HOLD SELF UP/BALANCE ON BED W MINIMAL SUPPORT. NOT YET STRONG ENOUGH TO STAND. SATS REMAINED 92%, BREATHING EFFORT INCREASED SLIGHTLY, HEART RATE UP TO 115 DURING DANGLE. PT PASSED LARGE BM USING BED RAMIREZ. PT TOLERATING WATER, FRIENDS AND FAMILY AT BEDSIDE
--- NOTE | 2019-04-22 18:34 | NUR ---
PT TOLERATING JELLO, VERY POOR HAND CORDINATION D/T PROFOUND WEAKNESS. IS ABLE TO HELP TURN HIMSELF FOR BEDPAN PLACEMENT. RESP REMAIN EVEN UNLABORED, SATS 92-94% ON 9L VIA HIGHFLO. OVERALL PT HAD PROGRESSED WELL TODAY.
--- NOTE | 2019-04-22 22:00 | NUR ---
ASSUMED PT CARE AT 1900 PT SITTING UP IN BED WITH HI FLOW NC AT 9L WITH OXYGEN SATURATIONS 94%. PT IS ALERT AND ORIENTED AND ABLE TO MAKE HIS NEEDS KNOWN. STATES HE FEELS "GROGGY" AND VERY WEAK. FAMILY AT BEDSIDE. PT C/O BEING EXHAUSTED AND TIRED. SLIGHTLY ELEVATED TEMP OF 99.3 UPON ASSESSMENT. TMAX OF 99.[address] JACOB AWARE. PT TOLERATING CLEAR LIQUIDS. STILL VERY WEAK TO BILATERAL ARMS/HANDS, BUT ABLE TO CAFETERIA OPERATOR HIS CUP FOR DRINKS. PT STATES HE IS VERY HUNGRY, BUT UNDERSTANDS WHY HE IS ON A CLEAR LIQUID DIET. LUNG SOUNDS ARE CLEAR TO BILATERAL UPPER LOBES AND DIMINISHED TO BILATERAL LOWER LOBES. NO WHEEZING NOTED. PT DENIES ANY PAIN. JUST EXHAUSTED. CALL LIGHT LEFT WITHIN REACH; PT ABLE TO MAKE HIS NEEDS KNOWN. REFUSED REPOSITIONING; STATED HE WAS COMFORTABLE AND WOULD CALL FOR REPOSITIONING. FAMILY REMAINS AT BEDSIDE FOR THE NIGHT AND IS APPROPRIATE AND COOPERATIVE WITH CARES.
--- NOTE | 2019-04-22 22:33 | NUR ---
CALLED DR. MEEKS IN REGARDS TO PT C/O NOT BEING ABLE TO SLEEP. NEW ORDERS FOR MELATONIN 6MG PO NOW.
[2019-04-23 04:06] LABS: BASOPHILS ABSOLUTE AUTO 0.01 K/mm3 (0.00-0.23); BASOPHILS PERCENT AUTO 0 % (0-2); EOSINOPHILS PERCENT AUTO 0 % (0-6); Hematocrit 42.3 % (37.0-53.0); Hemoglobin 13.5 g/dL (13.5-17.5); IMMATURE GRAN ABSOLUTE AUTO 0.07 K/mm3 (0.00-0.10); IMMATURE GRAN PERCENT AUTO 1 % (0-1); LYMPHOCYTES ABSOLUTE AUTO 1.15 K/mm3 (0.84-5.20); LYMPHOCYTES PERCENT AUTO 10 % (21-46); MONOCYTES ABSOLUTE AUTO 0.62 K/mm3 (0.16-1.47); MONOCYTES PERCENT AUTO 5 % (4-13); Mean Corpuscular HGB 31.8 pg (26.0-34.0); Mean Corpuscular HGB Conc 31.9 g/dL (31.5-36.5); Mean Corpuscular Volume 100 fL (80-100); Mean Platelet Volume 9.9 fL (9.1-12.4); NEUTROPHILS ABSOLUTE AUTO 9.88 K/mm3 (1.96-9.15); NEUTROPHILS PERCENT AUTO 84 % (41-73); Platelet Count 213 K/mm3 (150-400); RDW Coefficient Variation 12.7 % (11.7-14.2); RDW Standard Deviation 46.6 fL (35.1-46.3); Red Blood Cell Count 4.25 M/mm3 (4.30-5.90); White Blood Cell Count 11.73 K/mm3 (4.00-11.30)
[2019-04-23 04:21] LABS: Anion Gap 6 mmol/L (6-16); Blood Urea Nitrogen 26 mg/dL (8-24); Bun/Creatinine Ratio 28.7 (12.0-20.0); CO2, Blood 30 mmol/L (21-32); Calcium, Blood 8.4 mg/dL (8.5-10.1); Chloride, Blood 105 mmol/L (98-108); Creatinine, Blood 0.91 mg/dL (0.60-1.20); Glomerular Filtration Rate >60 (60-); Glucose, Blood 113 mg/dL (70-99); Potassium, Blood 4.2 mmol/L (3.5-5.5); Sodium, Blood 141 mmol/L (136-145)
--- NOTE | 2019-04-23 07:16 | NUR ---
END OF SHIFT SUMMARY PT HAS BEEN PLEASANT AND COOPERATIVE THROUGHOUT SHIFT. VERY SHY WITH MAKING NEEDS KNOWN. DOESN'T USE CALL LIGHT EVEN THOUGH IT IS WITHIN REACH. SISTER COMMUNICATES PT'S NEEDS AND REQUESTS FOR HIM. PT REMAINS ALERT AND ORIENTED; STILL STATES HIS HEAD FEELS "CLOUDY". PT NOTED TO HAVE BEAD OF SWEAT ACROSS FOREHEAD, TREMULOUS, AND C/O HALLUCINATIONS. TMAX OF 99.9, BUT DROPPED BACK DOWN TO 99.1. HR MAINLY 90-100'S WHILE AWAKE; 80-90'S DURING SLEEP. HR WAS NOTED TO BE HIGH 125 THIS SHIFT. PT STATED AT HOME HE DRINKS ABOUT A 6 PACK PER DAY; PASSED OFF TO DAY RN TO CONTINUE TO MONITOR. PT HAS ATTEMPTED TO SLEEP WITH NO SUCCESS; VERY EXHAUSTED, BUT UNABLE TO REST/SLEEP. MULTIPLE FAMILY MEMBERS IN AND OUT OF ROOM T/O NIGHT. LUNG SOUNDS REMAIN DIMINISHED WITH SLIGHT EXPIRATORY WHEEZES NOTED T/O. PRODUCTIVE, OCCASIONAL COUGH; THICK, CLEAR/YELLOWISH SPUTUM. PT CONTINUED TO TOLERATE CLEAR LIQUID DIET. STATES HE IS VERY HUNGRY AND HIS STOMACH IS UPSET WITH POSSIBLE HEARTBURN D/T HOW HUNGRY HE IS. EDUCATED PT ON WHY WE ARE STARTING WITH CLEAR LIQUID DIET BEFORE PROGRESSING DIET FURTHER; PT UNDERSTOOD. PT DECLINED REPOSITIONING MOST OF NIGHT. PULLED UP IN BED FREQUENTLY WITH SHIFTING OF HIPS. CALL LIGHT LEFT WITHIN REACH; ENCOURAGED TO UTILIZE.
--- NOTE | 2019-04-23 07:30 | NUR ---
Recieved report from Roberto HERRON. Patient awake in bed and states that he has some odd visuals., when asked if hallucinations he quickly stated 'No". He is on 7L O2 via HF NC and reduced to 5L and remains at 95%. He is MAEW but remains weak. He has NS TKO infuing into [employer]. He has SCD's bilaterally. He denies any SOB. He is slightly febrile at 99.0 and has cool wash cloth on head.
--- NOTE | 2019-04-23 08:35 | NUR ---
Recieved report from Roberto HERRON. As we were giving report the patient started to amp up as i explained why he is here and stating that [facility] as he stopped eating and his electrolytes were getting worse. He kept getting out of bed wanting to leave and had to assist him several times getting back to bed.After about the tenth conversation he wanted to leave and let him walk out. Nursing auto mechanic supervisor present and security was called. He exited and starting walking to U area yelling obsentities and security caught up with him nd he was place back in bed and bilateral soft wrist restraints were applied. We removed field start and charge nurse started RFA 20 IV. He continues to yell out at female staff. Started NS at 200ml/hr and Precedex at 0.7 mcg/kg/hr. He was up to bathroom to urinate before all this happened. He is currently quite and continues to refuse food and meds, will check on order fro possible NG. VSS
--- NOTE | 2019-04-23 09:30 | NUR ---
Patient tolerated scrambled eggs and bower and ate about 70% of it. He continues awake and talking with family. Reduced his O2 down to 3L HF NC and sats 94%. NS continues at TKO. He tolerated PO am meds. Family at bedside.
--- NOTE | 2019-04-23 12:49 | NUR ---
Patient only tolerated about 20% of regular diet for lunch and has been resting since most family went home. His O2 increased to 4L O2 via HF NC and sats 91-94%. HR remains in the 80's and systolic 110-120's with MAP > 65. Will be getting up in chair.
--- NOTE | 2019-04-23 13:46 | NUR ---
Patient up to chair. He went very slow and needed minimal assist to stand with walker. He transfered with standby assist and grabbed chair rail and lowered self into chair. His sats 88-91% and recovers to 91 % quickly. He states feels good sitting up. VSS.
--- NOTE | 2019-04-23 15:30 | NUR ---
Patient remains up in chair and is working with PT. Continues to deny any SOB. VSS. NS TKO. He is still on 4L HF NC and sats low 90%'s.
--- NOTE | 2019-04-23 18:06 | NUR ---
Patient was up to cammode before getting back to bed. He ambulated about 30 feet and had minimal drop in sats, and recovered to the low 90%'s shortly after getting back to bed. Pulled ray and had 1900 urine. Family brought dinner in and he has started to eat, CBG 138 no coverage . VSS. He continues on 4L O2 HF NC and sats low 90%'s . He remains on NS at [facility] in [facility].
--- NOTE | 2019-04-23 20:00 | NUR ---
ASSUMED CARE OF PT AT 1915. REPORT RECEIVED AT BEDSIDE. PT PRESENTS IN BED. ALERT AND ORIENTED. PLEASANT AND COOPERATIVE WITH CARE AND ASSESSMENT. PT DENIES PAIN AT THIS TIME. FAMILY AT BEDSIDE. PT ENCOURAGE TO MOVE ABOUT IN BED OR IF HE NEEDED ASSIST WITH TURNS THAT HE SHOULD CONTACT THIS RN FOR ASSISTANCE. PT VERBALIZED UNDERSTANDING. WILL REVIEW CHART AND PLAN OF CARE FOR THIS PT.
--- NOTE | 2019-04-24 00:30 | NUR ---
PT HAS BEEN ABLE TO SLEEP THIS EVENING. DID DISCONNECT PT FROM TKO IV SECONDARY TO NO LONGER RECEIVEING IV ANTIBIOTICS. PT HAS HAD TEACHING ON HIS MEDICATIONS, AND IMPORTANCE OF MOBILITY. WILL CONTINUE TO MONITOR PT.
[2019-04-24 04:32] LABS: BASOPHILS ABSOLUTE AUTO 0.01 K/mm3 (0.00-0.23); BASOPHILS PERCENT AUTO 0 % (0-2); EOSINOPHILS PERCENT AUTO 0 % (0-6); Hematocrit 43.3 % (37.0-53.0); Hemoglobin 14.1 g/dL (13.5-17.5); IMMATURE GRAN ABSOLUTE AUTO 0.07 K/mm3 (0.00-0.10); IMMATURE GRAN PERCENT AUTO 1 % (0-1); LYMPHOCYTES ABSOLUTE AUTO 1.19 K/mm3 (0.84-5.20); LYMPHOCYTES PERCENT AUTO 12 % (21-46); MONOCYTES ABSOLUTE AUTO 0.34 K/mm3 (0.16-1.47); MONOCYTES PERCENT AUTO 3 % (4-13); Mean Corpuscular HGB Conc 32.6 g/dL (31.5-36.5); Mean Corpuscular Volume 98 fL (80-100); NEUTROPHILS ABSOLUTE AUTO 8.59 K/mm3 (1.96-9.15); NEUTROPHILS PERCENT AUTO 84 % (41-73); Platelet Count 214 K/mm3 (150-400); RDW Coefficient Variation 12.4 % (11.7-14.2); Red Blood Cell Count 4.41 M/mm3 (4.30-5.90)
--- NOTE | 2019-04-24 10:05 | NUR ---
THIS AM PT WAS SETTING UP EATING AND A/O W/O PAIN OR ANY NOTED RESP DISTRESS. PT ON 4LHFNC AND RESTING WELL. FAMILY IN TO VISIT AND PT ENJOYING THE INTERACTIONS. RR IS EVEN UN UNLABORED WITH DIM. BASES.
--- NOTE | 2019-04-24 14:15 | NUR ---
DISCUSSED AND EDUCATED PT RE WORK ENVIORNMENT RISK FACTORS THAT HE MAY EVALUTATE AND CONSIDER TO MINIMIZE RESPIRATORY RISKS IN FUTURE.
--- NOTE | 2019-04-24 15:18 | NUR ---
PT TO BE TRANSFERED TO PCU-5 VIA W/C ON O2. PT CONT TO BE ALERT COMMUNICATING NEEDS. PT IS HAS NO IVF. PT HAS BEEN IN NSR- 90 RANGE AND O2 AT 4L HFNC. PT HAS BEEN EATING WELL AND DENIES GI DISTRESS. JULIA HERRON GIVEN REPORT AND WILL RECIEVE PT.
--- NOTE | 2019-04-24 16:30 | NUR ---
Recieved report from Sumanth HERRON. Patient was brought over in [facility] PT came in shortly after and ambulated in [address]. He remains on 4L O2 HF NC. He is alert and oriented and is able to communicate his needs.
--- NOTE | 2019-04-24 18:49 | NUR ---
Family will stay with patient tonite and his room needs to be kept dark during night time and he needs as little interruption during night. Patient currently up in recliner talking with mother. He remains on 4L O2 via HF NC and sats mid90%'s and denies and SOB or any distress.VSS
--- NOTE | 2019-04-25 07:30 | NUR ---
SHIFT SUMMARY PT HAS REMAINED AOX4 THROUGHOUT SHIFT. VSS. PLEASANT AND COOPERATIVE WITH CARE. PT CONTINUES TO AMBULATE WITH STANDBY ASSIST AND FWW TO RESTROOM. LUNG SOUNDS HAVE REMAINED CLEAR IN ALL UPPER LOBES, WITH DIMINISHED BASES. O2 SATS HAVE REMAINED >90% THROUGHOUT THE NIGHT ON 2-4L VIA NASAL CANNULA, PT TITRATED TO 2L VIA NASAL CANNULA THIS AM AND HAS TOLERATED WELL. PT REPORTS THAT HE SLEPT WELL AND FEELS THAT HIS STRENGTH HAS IMPROVED FROM YESTERDAY. ONE EPISODE OF TACHYCARDIA IN THE 150-160'S LAST NIGHT WHEN UP TO THE RESTROOM, PT WAS ASYMPTOMATIC AND DENIED DYSPNEA. FAMILY HAS REMAINED AT BEDSIDE THROUGHOUT THE NIGHT. NO OTHER CHANGES NOTED FROM INITIAL ASSESSMENT. WILL CONTINUE TO MONITOR AND REPORT TO ONCOMING SHIFT RN. BED IN LOW POSITION, CALL LIGHT IN REACH.
--- NOTE | 2019-04-25 07:40 | NUR ---
PCU DAYSHIFT ASSUMED CARE OF PT APPROX. 0700. PT A&OX4. ASSESSMENT COMPLETED. VITAL SIGNS STABLE. PT HAS FAMILY AT BEDSIDE THIS MORNING. PT CURRENLTY ON 4L OXYGEN VIA N.C. WITH SATS IN HIGH 90'S WILL BEGIN TO TITRATE THIS PT TOLERATES. PT ABLE TO TAKE A SHOWER THIS MORNING AND TOLERATED WELL. BED IN LOW POSTION, CALL LIGHT IN REACH AND PT DENIES ANY NEEDS AT THIS TIME.
[2019-04-25] MEDS ORDERED: ALBU2.5V5 INH (15:37)
[2019-04-25] MEDS ORDERED: ALBU90OI61 INH (15:38)
[2019-04-25] MEDS ORDERED: FLUT1DIS5 INH (15:38)
[2019-04-25] MEDS ORDERED: NASACORT10.8 ML (15:41)
--- NOTE | 2019-04-25 18:07 | NUR ---
SHIFT SUMMARY PT PLEASANT, COOPERATIVE AND USES CALL LIGHT APPROPRIATELY. PT REMAINS A&OX4. PT VITAL SIGNS REMAIN STABLE. PT HAS BEEN ON ROOM AIR FOR SEVERAL HOURS NOW WITH SATS IN 90'S. PT ABLE TO WORK WITH PT AND OT TODAY. PT AMBUATLED AROUND UNIT AND TOELRATED WELL. PT ABLE TO SHOWER AND AMBULATE IN ROOM INTERMITENTLY AND TOELRATING WELL WELL. PT FAMILY REMAINS AT BEDSIDE. PT REPORTS FEELING BETTER THAN HE HAS BEEN. BED IN LOW POSITION, CALL LIGHT IN REACH AND PT DENIES ANY NEEDS AT THIS TIME. WILL CONTINUE TO MONITOR UNTIL HANDOFF TO NIGHTSHIFT RN.
--- NOTE | 2019-04-26 05:36 | NUR ---
SHIFT SUMMARY PT HAS REMAINED AOX4 THROUGHOUT SHIFT. VSS. PLEASANT AND COOPERATIVE WITH CARE. PT CONTINUES TO AMBULATE INDEPENDENTLY WITH FWW IN ROOM. O2 SATS HAVE REMAINED >90% ON RA. PT REPORTS INCREASING STRENGTH. PT HAS RESTED THROGHOUT MUCH OF THE NIGHT WITH FAMILY AT BEDSIDE. NO OTHER CHANGES NOTED FROM INITIAL ASSESSMENT. WILL CONTINUE TO MONITOR AND REPORT TO ONCOMING SHIFT RN. BED IN LOW POSITION, CALL LIGHT IN REACH.
[2019-04-26] MEDS ORDERED: ALBU3IS INH (10:27)
[2019-04-26] MEDS ORDERED: PANT20 PO (10:28)
[2019-04-26] MEDS ORDERED: PRED10 PO (10:51)
[2019-04-26] MEDS ORDERED: DEEP SEA44 ML (10:54)
[2019-04-26] MEDS ORDERED: Bactrim Ds Tab1 EACH PO (10:57)
--- NOTE | 2019-04-26 10:57 | NUR ---
pcu dayshift ASSUMED CARE OF PT APPROX. 0700. PT A&OX4. ASSESSMENT COMPLETED. VITAL SIGNS STABLE. PT CURRENTLY ON ROOM AIR WITH SATS IN 90'S AND TOELRATING WELL. PT ABLE TO AMBULATE AROUND ROOM WITHOUT DESATURATION. PT DENIES ANY PAIN OR SHORTNESS OF BREATH THIS MORNING. PHYSICIAN IN TO SEE PATIENT THIS MORNING. PHYSICIAN PLACED DISCHARGE ORDERS FOR PT TO GO HOME. NO S/SX OF ACUTE DISSTRESS. DISCHARGE PROCESS BEING COMPLETED. NEW MEDICATIONS CALLED INTO PHARMACY. WILL CONTINUE TO MONITOR UNTIL PT ESCORTED TO AUTOMOBILE BY PEER STAFF MEMBER.
== END 2019-04-26 11:27 | disposition home or self-care (01) | DRG 208 ==
LOC: ER 16:25 → ICUW 16:51 → ICUE 16:51 → PCU 04-24 15:44
PROVIDERS: Emergency Medicine; Internal Medicine Critical Care Medicine; Internal Medicine Pulmonary Disease; Nurse Practitioner Acute Care; ADMIT Internal Medicine
PROC: 5A1945Z Respiratory Ventilation, 24-96 Consecutive Hours (ICD-10-PCS; principal; 2019-04-17)
PROC: 0BH17EZ Insertion of Endotracheal Airway into Trachea, Via Natural or Artificial Opening (ICD-10-PCS; 2019-04-17)
PROC: 02HV33Z Insertion of Infusion Device into Superior Vena Cava, Percutaneous Approach (ICD-10-PCS; 2019-04-17)
DX: J45.901 Unspecified asthma with (acute) exacerbation (principal); J96.01 Acute respiratory failure with hypoxia; J96.02 Acute respiratory failure with hypercapnia; J45.902 Unspecified asthma with status asthmaticus; R91.8 Other nonspecific abnormal finding of lung field; E66.9 Obesity, unspecified; Z68.33 Body mass index [BMI] 33.0-33.9, adult
CPT/HCPCS: 31500; 31720; 36600; 36620; 51702; 71045; 71046; 80048; 80053; 81001; 82330; 82803; 82947; 83735; 83880; 84100; 84484; 85007; 85025; 85027; 87070; 87077; 87086; 87186; 87205; 87486; 87581; 87633; 87798; 93005; 93010; 94002; 94003; 94640; 94760; 94761; 96365-59; 96375-59; 97116; 97162; 97165; 97530; 97535; 99291-25; A9270; C1751; C9113; J0330; J0360; J0456; J0696; J1650; J1940; J2060; J2704; J2930; J3010; J3475; J7030; J7040; J7050; J7060; J7070; J7512

== ENCOUNTER 2019-06-29 05:56 | Day surgery (SDC) | payer OTHER ==
[~2019-06-29] VITALS: Ht 180.3 cm; Wt 119.6 kg
[~2019-06-29 05:56] MED LIST changes: +ALBU2.5V5 INH; +ALBU3IS INH; +ALBU90OI61 INH; +Bactrim Ds Tab1 EACH PO; +DEEP SEA44 ML; +FLUT1DIS5 INH; +NASACORT10.8 ML; +PANT20 PO
[2019-06-29] MEDS ORDERED: PRED20 PO (06:26)
[2019-06-29] MEDS ORDERED: CLAR500 PO (06:27)
--- NOTE | 2019-06-29 06:45 | NUR ---
History, Chart, Medications and Allergies reviewed before start of procedure. LS WITH EXP WHEEZES T/O. PT REPORTS TAKING 2 SIPS OF BLACK COFFEE THIS MORNING ABOUT 0500 AM. Pre-Op teaching done. Pt verbalizes understanding.
--- NOTE | 2019-06-29 13:23 | NUR ---
PT SCRIPTS CALLED TO [facility], PT DID NOT SAY THAT HE ALREADY HAD PICKED UP SAME SCRIPTS ON Thursday06-23-19. PT STATED HE DID NOT RECEIVE SCRIPT FOR PAIN MED THAT WAS ORDERED ON DISCHARGE INSTRUCTIONS. VSS REMAINED STABLE T/O STEP RECOVERY. PT STATED HIS EYES AND NOSE BURNED LIKE HE HAD BEEN IN A POOL TOO LONG, NO BLEEDING OR DRAINAGE NOTED. PT STATED HE DID NOT HAVE AN IRRIGATION KIT OR DRIP PAD AT HOME OR AFRIN SPRAY. I PROVIDED GAUZE 4X4'S (2 PACKS) FOR RIDE HOME UNTIL HE COULD RN HEMATOLOGY SUPPLIES FROM DR LEACH'S OFFICE. CALLED DR LEACH OFFICE TO NOTIFY HIM SHASHA (MOTHER) WOULD BE COMING BY OFFICE TO RN HEMATOLOGY PAIN MED SCRIPT, AND SUPPLIES ON DISCHARGE ORDERS. OFFICE WAS CLOSED TILL 1330 SO NOTIFIED SHASHA. ANGELIA CALLED BACK TO NOTIFY ME THAT SCRIPTS HAD BEEN FILLED ON 06-23-19. I CALLED SHASHA TO UPDATE HER ABOUT THE SCRIPTS AND SHE SOUNDED FEARFUL. SHE STATED THAT Daniel HAD STARTED BLEEDING OUT NASAL CAVITY SOON THEY GOT HOME, THEY HAD USED ONE PACK OF GAUZE AND HE WAS HOLDING PRESSURE AND WHERE UNABLE TO CONTACT DR THRASHER. I CALLED DR LEACH'S CELL PHONE AND SPOKE TO HIM ABOUT SHASHA'S CONCERNS. DR LEACH SAID HE WAOULD TAKE CARE AND CALL SHASHA BACK IMMEDIATELY. Discharge instructions reviewed with patient. Patient verbalizes understanding. Copy given to patient to take home. Patient States Post-Procedure ride home has been arranged. Discharged via wheelchair to private car for ride home. ALL BELONINGS RETUNED TO PATIENT.
== END 2019-06-29 22:53 | disposition home or self-care (01) ==
LOC: ORSCMMR 05:56 → ORSCSDS 07:30 → ORSCMMR 22:53
PROVIDERS: Otolaryngology
PROC: 099 Ear, Nose, Sinus, Drainage (ICD-10-PCS; principal; 2019-06-29 07:30)
PROC: 099 Ear, Nose, Sinus, Drainage (ICD-10-PCS; principal; 2019-06-29 07:30)
PROC: 099W0ZZ Drainage of Right Sphenoid Sinus, Open Approach (ICD-10-PCS; principal; 2019-06-29 07:30)
PROC: 099 Ear, Nose, Sinus, Drainage (ICD-10-PCS; principal; 2019-06-29 07:30)
PROC: 8E09XBZ Computer Assisted Procedure of Head and Neck Region (ICD-10-PCS; principal; 2019-06-29 07:30)
PROC: 099Q0ZZ Drainage of Right Maxillary Sinus, Open Approach (ICD-10-PCS; principal; 2019-06-29 07:30)
PROC: 099R0ZZ Drainage of Left Maxillary Sinus, Open Approach (ICD-10-PCS; principal; 2019-06-29 07:30)
PROC: 099 Ear, Nose, Sinus, Drainage (ICD-10-PCS; principal; 2019-06-29 07:30)
PROC: 099X0ZZ Drainage of Left Sphenoid Sinus, Open Approach (ICD-10-PCS; principal; 2019-06-29 07:30)
DX: J32.4 Chronic pansinusitis (principal); J32.0 Chronic maxillary sinusitis; J45.909 Unspecified asthma, uncomplicated; E66.01 Morbid (severe) obesity due to excess calories; Z68.36 Body mass index [BMI] 36.0-36.9, adult; Z79.899 Other long term (current) drug therapy
CPT/HCPCS: 88305; 88311; C2625; J1100; J2250; J2405; J2704; J3010; J7120

== ENCOUNTER 2019-10-21 20:06 | Emergency (ER) | payer OTHER ==
[~2019-10-21] VITALS: Ht 172.7 cm; Wt 115.7 kg
[~2019-10-21 20:06] MED LIST changes: +CLAR500 PO; +PRED20 PO
[2019-10-21 20:29] LABS: Base Excess Venous -0.2 mmol/L; Bicarbonate Venous 23.4 mmol/L (24.0-30.0); PCO2 Venous 49.7 mmHg (38-42); PO2 Venous 60.9 mmHg (38-42); pH Blood Venous 7.32 (7.34-7.37)
[2019-10-21 20:34] LABS: BASOPHILS ABSOLUTE AUTO 0.07 K/mm3 (0.00-0.23); BASOPHILS PERCENT AUTO 1 % (0-2); EOSINOPHILS ABSOLUTE AUTO 2.89 K/mm3 (0.00-0.68); EOSINOPHILS PERCENT AUTO 23 % (0-6); Hematocrit 45.9 % (37.0-53.0); IMMATURE GRAN ABSOLUTE AUTO 0.02 K/mm3 (0.00-0.10); IMMATURE GRAN PERCENT AUTO 0 % (0-1); LYMPHOCYTES ABSOLUTE AUTO 4.06 K/mm3 (0.84-5.20); LYMPHOCYTES PERCENT AUTO 32 % (21-46); MONOCYTES ABSOLUTE AUTO 0.72 K/mm3 (0.16-1.47); MONOCYTES PERCENT AUTO 6 % (4-13); Mean Corpuscular HGB Conc 32.7 g/dL (31.5-36.5); Mean Corpuscular Volume 95 fL (80-100); Mean Platelet Volume 9.5 fL (9.1-12.4); NEUTROPHILS ABSOLUTE AUTO 4.77 K/mm3 (1.96-9.15); NEUTROPHILS PERCENT AUTO 38 % (41-73); Platelet Count 266 K/mm3 (150-400); RDW Coefficient Variation 12.5 % (11.7-14.2); RDW Standard Deviation 43.3 fL (35.1-46.3); Red Blood Cell Count 4.84 M/mm3 (4.30-5.90); White Blood Cell Count 12.53 K/mm3 (4.00-11.30)
[2019-10-21 20:53] LABS: Alanine Aminotransfer (ALT/SGP 38 U/L (12-78); Albumin/Globulin Ratio 1.1 (0.8-1.8); Alk Phos 60 U/L (50-136); Anion Gap 8 mmol/L (6-16); Aspartate Aminotrans (AST/SGOT 22 U/L (12-37); Bilirubin, Total 0.3 mg/dL (0.1-1.0); Blood Urea Nitrogen 11 mg/dL (8-24); Bun/Creatinine Ratio 13.3 (12.0-20.0); CO2, Blood 25 mmol/L (21-32); Chloride, Blood 111 mmol/L (98-108); Creatinine, Blood 0.83 mg/dL (0.60-1.20); Globulin, Blood 3.6 g/dL (2.2-4.0); Glomerular Filtration Rate >60 (60-); Glucose, Blood 109 mg/dL (70-99); Potassium, Blood 3.7 mmol/L (3.5-5.5); Sodium, Blood 144 mmol/L (136-145); Total Protein, Blood 7.6 g/dL (6.4-8.2)
[2019-10-21] MEDS ORDERED: Prednisone20 MG PO (22:10)
== END 2019-10-21 22:35 | disposition home or self-care (01) ==
LOC: ER 20:06
PROVIDERS: Physician Assistant
DX: J45.901 Unspecified asthma with (acute) exacerbation (principal); Z87.01 Personal history of pneumonia (recurrent); Z79.52 Long term (current) use of systemic steroids; Z87.891 Personal history of nicotine dependence
CPT/HCPCS: 36415; 71046; 80053; 82803; 85025; 94640; 96361; 96365; 96375; 99284-25; J2930; J3475; J7030

== ENCOUNTER 2019-10-28 15:57 | Inpatient (IN) | payer OTHER ==
[2019-10-28 16:24] LABS: BASOPHILS ABSOLUTE AUTO 0.06 K/mm3 (0.00-0.23); BASOPHILS PERCENT AUTO 1 % (0-2); EOSINOPHILS ABSOLUTE AUTO 2.32 K/mm3 (0.00-0.68); EOSINOPHILS PERCENT AUTO 21 % (0-6); Hematocrit 48.1 % (37.0-53.0); Hemoglobin 15.3 g/dL (13.5-17.5); IMMATURE GRAN ABSOLUTE AUTO 0.04 K/mm3 (0.00-0.10); IMMATURE GRAN PERCENT AUTO 0 % (0-1); LYMPHOCYTES ABSOLUTE AUTO 3.45 K/mm3 (0.84-5.20); LYMPHOCYTES PERCENT AUTO 31 % (21-46); MONOCYTES ABSOLUTE AUTO 0.64 K/mm3 (0.16-1.47); MONOCYTES PERCENT AUTO 6 % (4-13); Mean Corpuscular HGB 30.1 pg (26.0-34.0); Mean Corpuscular HGB Conc 31.8 g/dL (31.5-36.5); Mean Corpuscular Volume 95 fL (80-100); Mean Platelet Volume 9.5 fL (9.1-12.4); NEUTROPHILS PERCENT AUTO 41 % (41-73); Platelet Count 262 K/mm3 (150-400); RDW Coefficient Variation 12.7 % (11.7-14.2); Red Blood Cell Count 5.09 M/mm3 (4.30-5.90); White Blood Cell Count 11.11 K/mm3 (4.00-11.30)
[2019-10-28 16:55] LABS: Alanine Aminotransfer (ALT/SGP 33 U/L (12-78); Albumin, Blood 3.8 g/dL (3.4-5.0); Albumin/Globulin Ratio 1.1 (0.8-1.8); Alk Phos 60 U/L (50-136); Anion Gap 5 mmol/L (6-16); Aspartate Aminotrans (AST/SGOT 17 U/L (12-37); Bilirubin, Total 0.4 mg/dL (0.1-1.0); Blood Urea Nitrogen 12 mg/dL (8-24); Bun/Creatinine Ratio 13.9 (12.0-20.0); CO2, Blood 27 mmol/L (21-32); Calcium, Blood 8.5 mg/dL (8.5-10.1); Chloride, Blood 107 mmol/L (98-108); Creatinine, Blood 0.87 mg/dL (0.60-1.20); Globulin, Blood 3.6 g/dL (2.2-4.0); Glomerular Filtration Rate >60 (60-); Glucose, Blood 114 mg/dL (70-99); Sodium, Blood 139 mmol/L (136-145); Total Protein, Blood 7.4 g/dL (6.4-8.2); Troponin I <0.015 ng/mL (0.000-0.040)
[2019-10-28] MEDS ORDERED: AZIT250 PO (18:10)
[2019-10-28] MEDS ORDERED: ALBU2.5V5 INH (18:11)
--- NOTE | 2019-10-28 23:54 | NUR ---
BEGINNING SHIFT SUMMARY ASSUMED CARE OF PT AT 2132. PT IS A/O X4, DENIES N/T AT THIS TIME. PT STATES THAT HE IS HAVING SOME SOB BUT IT IS BETTER THAN BEFORE, INSPIRATORY AND EXPIRATORY WHEEZES HEARD ON AUSCALTATION. HEART SOUNDS REGULAR. PT STATES THAT HE WAS INTUBATED BACK IN APRIL DUE TO SYMPTOMS SIMILAR TO WHAT HE WAS HAVING TODAY AND DECIDED TO COME IN TO MAKE SURE HIS SYMPTOMS DIDNT ESCALATE. PT STATES THAT HE HAS BEEN HAVING ASTHMA SYMPTOMS ABOUT 7 YEARS AGO BUT HE HAS NOT HAD A DEFINITE DIAGNOSIS OF ASTHMA. PT STATES THAT HE HAD AN ALLERGY TEST DONE ON HIS BACK AND HE HAD AN ALLERGIC REACTION TO SOMETHING BUT THE DOCTORS DIDNT KNOW AND THE ALLERGY IS WHAT IS CAUSING HIS SYMPTOMS. PT IS CURRENTLY SLEEPING WITH SON IN ROOM. CALL LIGHT IN REACH, BED IN LOWEST POSTION, WILL CONTINUE TO MONITOR.
[2019-10-29 00:08] LABS: Adenovirus Not Detected (NOT DETECT); Bordetella pertussis Not Detected (NOT DETECT); Chlamydophila pneumoniae Not Detected (NOT DETECT); Coronavirus 229E Not Detected (NOT DETECT); Coronavirus HKU1 Not Detected (NOT DETECT); Coronavirus NL63 Not Detected (NOT DETECT); Coronavirus OC43 Not Detected (NOT DETECT); Human Metapneumovirus Not Detected (NOT DETECT); Human Rhinovirus/Enterovirus Not Detected (NOT DETECT); Influenza A Not Detected (NOT DETECT); Influenza A/2009-H1 Not Detected (NOT DETECT); Influenza A/H1 Not Detected (NOT DETECT); Influenza A/H3 Not Detected (NOT DETECT); Influenza B Not Detected (NOT DETECT); Mycoplasma pneumoniae Not Detected (NOT DETECT); Parainfluenza Virus 1 Not Detected (NOT DETECT); Parainfluenza Virus 2 Not Detected (NOT DETECT); Parainfluenza Virus 3 Not Detected (NOT DETECT); Parainfluenza Virus 4 Not Detected (NOT DETECT); Respiratory Syncytial Virus Not Detected (NOT DETECT)
--- NOTE | 2019-10-29 04:15 | NUR ---
END SHIFT SUMMARY NO ACUTE CHANGES NOTED T/O THE NIGHT. PT SLEPT T/O THE NIGHT WITH SON AT BED SIDE. CALL LIGHT IN REACH, BED IN LOWEST POSTION, WILL CONTINUE TO MONITOR UNTIL DAYSHIFT NURSE ARRIVES.
[2019-10-29 04:42] LABS: BASOPHILS ABSOLUTE AUTO 0.01 K/mm3 (0.00-0.23); BASOPHILS PERCENT AUTO 0 % (0-2); EOSINOPHILS PERCENT AUTO 0 % (0-6); Hematocrit 46.2 % (37.0-53.0); IMMATURE GRAN ABSOLUTE AUTO 0.03 K/mm3 (0.00-0.10); IMMATURE GRAN PERCENT AUTO 0 % (0-1); LYMPHOCYTES ABSOLUTE AUTO 1.02 K/mm3 (0.84-5.20); LYMPHOCYTES PERCENT AUTO 11 % (21-46); MONOCYTES ABSOLUTE AUTO 0.11 K/mm3 (0.16-1.47); MONOCYTES PERCENT AUTO 1 % (4-13); Mean Corpuscular HGB 30.9 pg (26.0-34.0); Mean Corpuscular HGB Conc 32.5 g/dL (31.5-36.5); Mean Corpuscular Volume 95 fL (80-100); Mean Platelet Volume 9.4 fL (9.1-12.4); NEUTROPHILS ABSOLUTE AUTO 7.88 K/mm3 (1.96-9.15); NEUTROPHILS PERCENT AUTO 87 % (41-73); Platelet Count 277 K/mm3 (150-400); RDW Coefficient Variation 12.6 % (11.7-14.2); RDW Standard Deviation 44.1 fL (35.1-46.3); Red Blood Cell Count 4.85 M/mm3 (4.30-5.90); White Blood Cell Count 9.05 K/mm3 (4.00-11.30)
--- NOTE | 2019-10-29 17:55 | NUR ---
SHIFT SUMMARY- PT A/O, PLESANT AND COOPERATIVE. PT HAS BILATERAL ISP AND EXP WHEEZE. DR. WHITE CONSULTED. PT WORKING WITH RT.
--- NOTE | 2019-10-29 23:06 | NUR ---
BEGINNING SHIFT SUMMARY ASSUMED CARE OF PT AT 1900. PT IS A/O X3, PT DENIES N/T. HEART SOUNDS REGULAR, EXPIRATORY WHEEZES HEARD ON AUSCALTATION. DENIES SOB/DYSPNEA AT THIS TIME. PT STATES THAT HE IS FEELING A LOT BETTER. PT STATES THAT HIS ONLY COMPLAINT IS HIS COUGH AND HOW IT MAKES HIM HOT AND SOB. CALL LIGHT IN REACH, BED IN LOWEST POSTION, WILL CONTINUE TO MONITOR.
--- NOTE | 2019-10-30 04:06 | NUR ---
END SHIFT SUMMARY NO ACUTE CHANGES NOTED T/O THE NIGHT. PT STATED THAT HE WAS NOT ABLE TO SLEEP VERY WELL. PT AWOKE WITH SWEATS, PT IS AFEBRILE. PT STILL HAS NOT PRODUCED ANOTHER SPUTUM SAMPLE FOR RETESTING. CALL LIGHT IN REACH, BED IN LOWEST POSTION, WILL CONTINUE TO MONITOR UNTIL DAYSHIFT NURSE ARRIVES.
[2019-10-30 05:23] LABS: BASOPHILS ABSOLUTE AUTO 0.01 K/mm3 (0.00-0.23); BASOPHILS PERCENT AUTO 0 % (0-2); EOSINOPHILS PERCENT AUTO 0 % (0-6); Hematocrit 44.8 % (37.0-53.0); Hemoglobin 14.2 g/dL (13.5-17.5); IMMATURE GRAN ABSOLUTE AUTO 0.04 K/mm3 (0.00-0.10); IMMATURE GRAN PERCENT AUTO 0 % (0-1); LYMPHOCYTES ABSOLUTE AUTO 1.31 K/mm3 (0.84-5.20); LYMPHOCYTES PERCENT AUTO 12 % (21-46); MONOCYTES ABSOLUTE AUTO 0.36 K/mm3 (0.16-1.47); MONOCYTES PERCENT AUTO 3 % (4-13); Mean Corpuscular HGB 30.3 pg (26.0-34.0); Mean Corpuscular HGB Conc 31.7 g/dL (31.5-36.5); Mean Corpuscular Volume 96 fL (80-100); Mean Platelet Volume 9.7 fL (9.1-12.4); NEUTROPHILS ABSOLUTE AUTO 9.61 K/mm3 (1.96-9.15); NEUTROPHILS PERCENT AUTO 85 % (41-73); Platelet Count 264 K/mm3 (150-400); RDW Coefficient Variation 12.9 % (11.7-14.2); RDW Standard Deviation 45.2 fL (35.1-46.3); Red Blood Cell Count 4.68 M/mm3 (4.30-5.90); White Blood Cell Count 11.33 K/mm3 (4.00-11.30)
[2019-10-30 05:41] LABS: Anion Gap 9 mmol/L (6-16); Blood Urea Nitrogen 17 mg/dL (8-24); Bun/Creatinine Ratio 19.2 (12.0-20.0); CO2, Blood 24 mmol/L (21-32); Calcium, Blood 8.8 mg/dL (8.5-10.1); Chloride, Blood 107 mmol/L (98-108); Creatinine, Blood 0.89 mg/dL (0.60-1.20); Glomerular Filtration Rate >60 (60-); Glucose, Blood 162 mg/dL (70-99); Potassium, Blood 4.1 mmol/L (3.5-5.5); Sodium, Blood 140 mmol/L (136-145)
[2019-10-30] MEDS ORDERED: Flonase 0.05% N16 GM (15:58)
[2019-10-30] MEDS ORDERED: MONT10T PO (15:59)
[2019-10-30] MEDS ORDERED: BACTRIM DS TAB1 EACH PO (16:00)
[2019-10-30] MEDS ORDERED: PRED10 PO (16:04)
--- NOTE | 2019-10-30 16:56 | NUR ---
PT DISCHARGED FROM UNIT, DISCHARGE INSTRUCTIONS REVIEWED. IV REMOVED. PRESCRIPTIONS FAXED TO [facility]. INSTRUCTED ON FOLLOW UP APOINTMENTS. LEFT VIA WHEELCHAIR.
== END 2019-10-30 17:00 | disposition home or self-care (01) | DRG 189 ==
LOC: ER 15:57 → MEDS 15:58
PROVIDERS: Hospitalist; Nurse Practitioner Acute Care; Physician Assistant; ADMIT Internal Medicine
DX: J96.01 Acute respiratory failure with hypoxia (principal); J45.901 Unspecified asthma with (acute) exacerbation; J32.9 Chronic sinusitis, unspecified; E66.9 Obesity, unspecified; Z68.32 Body mass index [BMI] 32.0-32.9, adult; Z79.51 Long term (current) use of inhaled steroids; Z87.891 Personal history of nicotine dependence
CPT/HCPCS: 0099U; 36415; 71045; 80048; 80053; 83880; 84484; 85025; 93005; 93010; 94640; 94644; 94760; 96365; 96366; 96372; 96375; 99285-25; A9270-GY; G0378; J1650; J2930; J3475; J7030; J7512